=== PATIENT | female | born 1945 | race Caucasian/White ===

== ENCOUNTER 2018-07-31 10:56 | Day surgery (SDC) | payer MEDICARE, MEDICAID ==
[~2018-07-31] VITALS: Ht 160 cm; Wt 48.3 kg
[2018-07-31] MEDS ORDERED: normal saline 1000ml 1,000 ML IV SCH ×2 (11:45→13:06)
[2018-07-31 12:07] VITALS: BP 125/51
--- NOTE | 2018-07-31 12:10 | NUR ---
MD ALEE AT BEDSIDE. NEW ORDER GIVEN, PT DOES NOT NEED IV, OR LABS DRAWN.
[2018-07-31] MEDS ORDERED: AMLO5TAB PO (12:20)
[2018-07-31] MEDS ORDERED: ONDA4TAB6 PO (12:20)
[2018-07-31] MEDS ORDERED: ALB0.5UD IH (12:20)
[2018-07-31] MEDS ORDERED: HYDR-4383 PO (12:20)
[2018-07-31] MEDS ORDERED: OMEP10CA4 PO (12:20)
[2018-07-31] MEDS ORDERED: heparin sodium, porcine/PF 100unit/ml 5ML syringe ICATH ONE (13:05)
[2018-07-31] MEDS ORDERED: fentaNYL/PF 50MCG/1 ML 2ML syringe IV PRN (13:05)
[2018-07-31] MEDS ORDERED: LIDOcaine 1%/PF 5ML 10 MG/ML VIAL SQ ONE (13:05)
[2018-07-31] MEDS ORDERED: midazolam 2 mg/2 ml injection IV PRN (13:05)
[2018-07-31] MEDS ORDERED: LIDOcaine 1%/PF 5ML 10 MG/ML VIAL ONE ×2 (13:10→13:47)
[2018-07-31] MEDS ORDERED: midazolam 2 mg/2 ml injection ONE (13:22)
[2018-07-31] MEDS ORDERED: fentaNYL/PF 50MCG/1 ML 2ML syringe ONE (13:22)
[2018-07-31] MEDS ORDERED: heparin sodium, porcine/PF 100unit/ml 5ML syringe ONE (13:23)
[2018-07-31 14:11] VITALS: BP 147/77
[2018-07-31 14:26] VITALS: BP 127/56
[2018-07-31 14:41] VITALS: BP 125/51
== END 2018-07-31 14:44 | disposition home or self-care (01) ==
LOC: SSTAY O 10:56
PROVIDERS: ATTEND Radiology Diagnostic Radiology
DX: C34.12 Malignant neoplasm of upper lobe, left bronchus or lung (principal); I10 Essential (primary) hypertension; Z92.3 Personal history of irradiation; Z79.891 Long term (current) use of opiate analgesic; Z87.891 Personal history of nicotine dependence; Z72.89 Other problems related to lifestyle; Z79.899 Other long term (current) drug therapy
CPT/HCPCS: 36561; 76937; 77001; J1642; J2001; J2250; J3010; J7030; A6219; C1788; C1894